=== PATIENT | female | born 1970 | race American Indian/Alaskan Native ===

== ENCOUNTER 2017-12-09 17:28 | Inpatient (IN) | payer OTHER ==
[2017-12-09 18:08] LABS: Basophils % (Auto) 0.3 % (0.0-1.8); Eosinophils % (Auto) 0.4 % (0.0-4.3); Hematocrit 32.1 % (30.3-42.9); Hemoglobin 10.5 gm/dl (10.1-14.3); Lymphocytes # (Auto) 0.9 K/mm3 (1.2-5.4); Lymphocytes % (Auto) 10.7 % (13.4-35.0); Mean Corpuscular HGB Conc 33 % (30-34); Monocytes # (Auto) 0.2 K/mm3 (0.0-0.8); Monocytes % (Auto) 2.6 % (0.0-7.3); Platelet Count 555 K/mm3 (140-440); Red Blood Count 4.94 M/mm3 (3.65-5.03); Red Cell Distribution Width 17.7 % (13.2-15.2)
[2017-12-09 18:11] LABS: Mean Corpuscular Hemoglobin 21 pg (28-32); Mean Corpuscular Volume 65 fl (79-97)
[2017-12-09 18:17] LABS: Albumin 3.8 g/dL (3.9-5); BUN/Creatinine Ratio 17; Blood Urea Nitrogen 12 mg/dL (7-17); Calcium 9.2 mg/dL (8.4-10.2); Hemolysis Index 0; Lipase 41 units/L (13-60)
[2017-12-09 18:18] LABS: Alanine Aminotransferase < 5 units/L (7-56)
[2017-12-09] MEDS ORDERED: ZOFRAN ODT ONE (19:42)
[2017-12-09] MEDS ORDERED: ZOFRAN ODT PO ONE (19:42)
[2017-12-09] MEDS ORDERED: PEPCID IV ONE (20:54)
[2017-12-09] MEDS ORDERED: NACL 0.9% 1000 ML 1,000 ML IV ONE (20:54)
[2017-12-09] MEDS ORDERED: ALUM-MAG HYDROX-SIMETH 200-200-20MG/5ML PO ONE (20:55)
[2017-12-09] MEDS ORDERED: ZOFRAN IV ONE (20:55)
--- NOTE | 2017-12-09 20:56 | Emergency Department Report ---
ED Abdominal Pain HPI - General Chief Complaint: Abdominal Pain Stated Complaint: ABD PAIN/VOMITING Time Seen by Provider: 12/09/17 20:54 Source: patient Mode of arrival: Wheelchair Limitations: No Limitations - History of Present Illness Initial Comments: 47-year-old female past medical history asthma, hypothyroid presents with complaint of over 24 hours nausea vomiting and epigastric pain patient states she has some subjective chills. Awake alert and oriented 3. States she is actively nauseous. Denies any vaginal bleeding hematuria or increased urinary frequency. Accompanied by at bedside. Pointing to her epigastric region. MD Complaint: abdominal pain Onset/Timin -: days(s) Location: periumbilical Radiation: epigastric Migration to: periumbilical Severity: moderate Quality: aching Consistency: constant Improves With: nothing Associated Symptoms: chills - Related Data Allergies Allergy/AdvReac Type Severity Reaction Status Date / Time No Known Allergies Allergy Unverified 12/09/17 17:32 ED Review of Systems ROS: Stated complaint: ABD PAIN/VOMITING Other details as noted in HPI Constitutional: denies: chills, fever Eyes: denies: eye pain, eye discharge, vision change ENT: denies: ear pain, throat pain Respiratory: denies: cough, shortness of breath, wheezing Cardiovascular: denies: chest pain, palpitations Endocrine: no symptoms reported Gastrointestinal: abdominal pain, nausea, vomiting. denies: diarrhea Genitourinary: denies: urgency, dysuria, discharge Musculoskeletal: denies: back pain, joint swelling, arthralgia Skin: denies: rash, lesions Neurological: denies: headache, weakness, paresthesias Psychiatric: denies: anxiety, depression Hematological/Lymphatic: denies: easy bleeding, easy bruising ED Past Medical Hx - Past Medical History Hx Asthma: Yes Additional medical history: thyroid problem - Surgical History Additional Surgical History: C/S - Social History Smoking Status: Never Smoker Substance Use Type: None ED Physical Exam - General Limitations: No Limitations General appearance: alert, in no apparent distress - Head Head exam: Present: atraumatic, normocephalic - Eye Eye exam: Present: normal appearance - ENT ENT exam: Present: mucous membranes moist - Neck Neck exam: Present: normal inspection - Respiratory Respiratory exam: Present: normal lung sounds bilaterally. Absent: respiratory distress - Cardiovascular Cardiovascular Exam: Present: regular rate, normal rhythm. Absent: systolic murmur, diastolic murmur, rubs, gallop - GI/Abdominal GI/Abdominal exam: Present: tenderness (+ LLq pain on deep palpation), normal bowel sounds - Extremities Exam Extremities exam: Present: normal inspection - Back Exam Back exam: Present: normal inspection - Neurological Exam Neurological exam: Present: alert, oriented X3 - Psychiatric Psychiatric exam: Present: normal affect, normal mood - Skin Skin exam: Present: warm, dry, intact, normal color. Absent: rash ED Course Vital Signs 12/09/17 17:32 Temperature 98.7 F Pulse Rate 87 Respiratory 18 Rate Blood Pressure 132/90 O2 Sat by Pulse 99 Oximetry ED Medical Decision Making - Lab Data Result diagrams: 12/09/17 17:56 12/09/17 17:56 - Medical Decision Making A/P: Abdominal pain, acute colitis 1-labs reviewed, unremarkable 2-CT shows colitis 3-Zofran when necessary, Pepcid when necessary 4- case/ d/w hospitalist for admission Critical care attestation.: If time is entered above; I have spent that time in minutes in the direct care of this critically ill patient, excluding procedure time. ED Disposition Clinical Impression: Colitis Abdominal pain Qualifiers: Abdominal location: left lower quadrant Qualified Code(s): R10.32 - Left lower quadrant pain Disposition: -09 OP ADMIT IP TO THIS HOSP Is pt being admited?: Yes Does the pt Need Aspirin: No Condition: Stable Instructions: Abdominal Pain (ED) Referrals: PRIMARY CARE, [Primary Care Provider] - 3-5 Days
[2017-12-09] MEDS ORDERED: LIDOCAINE VISCOUS 2% MM NR (21:00)
[2017-12-09] MEDS ORDERED: LIDOCAINE VISCOUS 2% MM ONE (21:22)
[2017-12-09 21:24] LABS: Bacteria,Urine 1+ /HPF (Negative); Bilirubin,Urine NEG (Negative); Blood,Urine SM (Negative); Color,Urine Yellow (Yellow); Mucus,Urine 2+ /HPF
--- NOTE | 2017-12-10 00:21 | Cat Scan Report ---
FINAL REPORT PROCEDURE: CT ABDOMEN PELVIS W CON TECHNIQUE: Computerized axial tomography of the abdomen and pelvis was performed after the IV injection of iodinated nonionic contrast. HISTORY: left sided abd pain COMPARISON: No prior studies are available for comparison. FINDINGS: Visualized lower thorax: No significant abnormality. Liver: Liver size is normal. There are a few areas of hypoattenuation identified in the right lobe of the liver the largest measures 4 centimeters. Cysts are suspected.. Spleen: Normal size and attenuation. Gallbladder and biliary system: Normal. Pancreas: Normal. Adrenals: Normal. Kidneys: The kidneys have normal size. No hydronephrosis. No renal stones or masses. GI tract: The stomach is normal. A small hiatal hernia is identified. The small bowel is normal. No obstruction is seen. The cecum and appendix are normal. There is bowel wall thickening involving distal colon, colitis is suspected. Complication.. Lymph nodes and mesentery: Normal. Vasculature: Normal. Bladder: Normal. Reproductive organs: The uterus is slightly enlarged. Fibroid formation in the anterior uterine myometrium is noted.. Peritoneum: There is moderate ascites involving left abdomen and extending into the pelvis.. Musculoskeletal structures: No significant abnormality. Other: None. IMPRESSION: Bowel wall thickening involving the distal colon including the splenic flexure and descending colon. Colitis is suspected this region. No complication. Moderate ascites in the left abdomen extending into the pelvis. Cysts in the liver are noted. Enlarged uterus with fibroid formation in the anterior myometrium.
[2017-12-10] MEDS ORDERED: MORPHINE IV ONE (00:56)
[2017-12-10] MEDS ORDERED: NACL 0.9% 1000 ML 1,000 ML IV ONE (00:56)
[2017-12-10] MEDS ORDERED: LEVAQUIN 500MG/100ML 500 MG/100 ML BAG IV ONE (01:08)
[2017-12-10] MEDS ORDERED: SODIUM CHLORIDE FLUSH SYRINGE 10 ML IV PRN (01:41)
[2017-12-10] MEDS ORDERED: TYLENOL PR PRN (01:41)
[2017-12-10] MEDS ORDERED: APRESOLINE IV PRN ×2 (01:41→03:46)
[2017-12-10] MEDS ORDERED: MORPHINE IV PRN (01:41)
[2017-12-10] MEDS ORDERED: ZOFRAN IV PRN (01:41)
--- NOTE | 2017-12-10 01:48 | History and Physical Report ---
History of Present Illness Date of examination: 12/10/17 History of present illness: 47-year-old woman with history of hypertension, comes to the ER for abdominal pain, mid abdomen that started day night. pain is sharp, every 5 minutes, intensity 7/10, radiating to the back, cannot identify exacerbating factor, better with morphine. She had diarrhea 2x, but now resolved Review of systems Constitutional: no weight loss, chills Ears, eyes, nose, mouth and throat: no nasal congestion, no nasal discharge, no sinus pressure, no vision change, no red eye. Neck: No neck pain or rigidity. Cardiovascular: no chest pain, palpitations Respiratory: no cough, shortness of breath Gastrointestinal: no hematochezia Genitourinary : no frequency , no hematuria Musculoskeletal: no joint swelling or muscle ache Integumentary: no rash, no pruritis Neurological: no parathesias, no numbness, no focal weakness Endocrine: no cold or heat intolerance, no polyuria or polydipsia Hematologic/Lymphatic: no easy bruising, no easy bleeding, no gland swelling Allergic/Immunologic: no urticaria, no angioedema. PAST MEDICAL HISTORY: hypertension,asthma PAST SURGICAL HISTORY: c/section SOCIAL HISTORY: No alcohol, no tobacco, no drugs FAMILY HISTORY: Hypertension Medications and Allergies Allergies Allergy/AdvReac Type Severity Reaction Status Date / Time No Known Allergies Allergy Unverified 12/09/17 17:32 Active Meds: Active Medications Acetaminophen (Tylenol) 650 mg PO Q4H PRN PRN Reason: Pain MILD(1-3)/Fever >100.5/PLEITEZ Acetaminophen (Tylenol) 650 mg LA Q4H PRN PRN Reason: Pain MILD(1-3)/Fever >100.5/PLEITEZ Enoxaparin Sodium (Lovenox) 30 mg SUB-Q QDAY KIMBERLY Hydralazine HCl (Apresoline) 5 mg IV Q6H PRN PRN Reason: Hypertension Sodium Chloride (Nacl 0.9% 1000 Ml) 1,000 mls @ 999 mls/hr IV BOLUS ONE Stop: 12/10/17 01:56 Metronidazole (Flagyl 500 Mg/100 Ml) 500 mg in 100 mls @ 200 mls/hr IV ONCE KIMBERLY Stop: 12/10/17 02:29 Levofloxacin/Dextrose (Levaquin 500mg/100ml) 500 mg in 100 mls @ 100 mls/hr IV ONCE ONE Stop: 12/10/17 02:07 Sodium Chloride (Nacl 0.45% 1000 Ml) 1,000 mls @ 100 mls/hr IV DIRECT KIMBERLY Levofloxacin/Dextrose (Levaquin 750mg/150ml) 750 mg in 150 mls @ 100 mls/hr IV Q24HR KIMBERLY; Protocol Metronidazole (Flagyl 500 Mg/100 Ml) 500 mg in 100 mls @ 100 mls/hr IV Q8HR KIMBERLY Morphine Sulfate (Morphine) 2 mg IV Q4H PRN PRN Reason: Pain, Moderate (4-6) Ondansetron HCl (Zofran) 4 mg IV Q4H PRN PRN Reason: Nausea And Vomiting Sodium Chloride (Sodium Chloride Flush Syringe 10 Ml) 10 ml IV BID KIMBERLY Sodium Chloride (Sodium Chloride Flush Syringe 10 Ml) 10 ml IV PRN PRN PRN Reason: LINE FLUSH Exam - Physical Exam Narrative exam: Gen. appearance: Patient lying in bed, no apparent distress HEENT: Normocephalic, atraumatic, pupils equally round and reactive to light, extraocular movement intact, and no sclericterus,. No JVD or thyromegaly or nodule,neck supple, no carotid bruit ,mucous membranes moist, no exudate or erythema Heart: S1, S2, regular rate and rhythm Lungs: Clear bilaterally, breathing comfortable Abdomen: Positive bowel sounds, tender in mid abdomen, LLQ , nondistended, no organomegaly Extremity: No LE edema, no cyanosis, clubbing Skin: No rash, nodules, warm, dry Neuro: Oriented 3, cranial nerves II-12 intact, speech is fluent, sensory intact - Constitutional Vitals: Temp Pulse Resp BP Pulse Ox 98.7 F 87 18 132/90 99 12/09/17 17:32 12/09/17 17:32 12/09/17 17:32 12/09/17 17:32 12/09/17 17:32 Results - Labs CBC & Chem 7: 12/09/17 17:56 12/09/17 17:56 Labs: Abnormal lab results 12/09/17 12/09/17 Range/Units 17:56 17:56 MCV 65 L (79-97) fl MCH 21 L (28-32) pg RDW 17.7 H (13.2-15.2) % Plt Count 555 H (140-440) K/mm3 Lymph % (Auto) 10.7 L (13.4-35.0) % Lymph # 0.9 L (1.2-5.4) K/mm3 Seg Neutrophils % 86.0 H (40.0-70.0) % Sodium 136 L (137-145) mmol/L Chloride 97.4 L (98-107) mmol/L Glucose 107 H (65-100) mg/dL ALT < 5 L (7-56) units/L Albumin 3.8 L (3.9-5) g/dL - Imaging and Cardiology Chest x-ray: report reviewed CT scan - abdomen: report reviewed CT scan - pelvis: report reviewed Assessment and Plan Assessment Acute colitis Hypertension Plan Admit to medicine Start IV levaquin, flagyl, morphine Consult GI, bowel rest, DVT prophalaxis IV hydralazine as needed
[2017-12-10] MEDS ORDERED: FLAGYL 500 MG/100 ML 500 MG/100 ML BAG IV SCH (02:00)
[2017-12-10] MEDS ORDERED: FLAGYL 500 MG/100 ML 500 MG/100 ML BAG IV ONE (02:23)
[2017-12-10] MEDS: NACL 0.45% 1000 ML 1,000 ML IV SCH ×2 (03:42→22:19)
[2017-12-10 08:17] LABS: Basophils % (Auto) 0.4 % (0.0-1.8); Eosinophils % (Auto) 0.2 % (0.0-4.3); Hematocrit 25.8 % (30.3-42.9); Hemoglobin 8.5 gm/dl (10.1-14.3); Lymphocytes # (Auto) 2.2 K/mm3 (1.2-5.4); Lymphocytes % (Auto) 22.3 % (13.4-35.0); Mean Corpuscular HGB Conc 33 % (30-34); Monocytes # (Auto) 0.8 K/mm3 (0.0-0.8); Monocytes % (Auto) 7.9 % (0.0-7.3); Platelet Count 458 K/mm3 (140-440); Red Blood Count 3.89 M/mm3 (3.65-5.03); Red Cell Distribution Width 18.4 % (13.2-15.2)
[2017-12-10 08:18] LABS: Mean Corpuscular Hemoglobin 22 pg (28-32); Mean Corpuscular Volume 66 fl (79-97)
[2017-12-10 08:44] LABS: BUN/Creatinine Ratio 13; Blood Urea Nitrogen 9 mg/dL (7-17); Hemolysis Index 3
[2017-12-10] MEDS: FLAGYL 500 MG/100 ML 500 MG/100 ML BAG IV SCH ×2 (09:59→18:40)
[2017-12-10] MEDS ORDERED: LOVENOX SUB-Q SCH ×2 (10:00)
[2017-12-10] MEDS: SODIUM CHLORIDE FLUSH SYRINGE 10 ML IV SCH ×2 (10:00→22:18)
[2017-12-10] MEDS: DILAUDID IV PRN ×2 (10:09→22:19)
[2017-12-10 11:36] LABS: Hematocrit 25.2 % (30.3-42.9); Hemoglobin 8.1 gm/dl (10.1-14.3)
--- NOTE | 2017-12-10 13:05 | Progress Note ---
Assessment and Plan Assessment and plan: Ms. Tucker is 47 yo woman with a history of hypertension who pw abd pains, diarrhea and found to have the following: * CT abd/pelvis with IV contrast reported bowel wall thickening involving distal colon including splenic flexure and descending colon, colitis is suspected, moderate ascities in the left abdomen extending into the pelvis, cysts in the liver, enlarged uterus with fibroid in the anterior myometrium -Colitis: await GI evaluation -Hypertension: low salt diet -Drop in HCT/Hgb, no signs of bleeding: hold sq lovenox, repeat h/h in am. History Interval history: Patient was seen and examined. Follow-up on current diagnosis. Overnight uneventful. Patient denies any chest pain, shortness breath, nausea/vomiting or severe headaches. Imaging, nursing note, chart, labs and old chart reviewed. Discussed with patient. Hospitalist Physical - Physical exam Narrative exam: GEN: WDWN, NAD, Awake, Alert, Orientated HEENT: NCAT, EOMI, PERRL, OP Clear NECK: supple, no adenopathy, no thyromegaly, no JVD CVS/HEART: RRR, normal S1S2, pulses present bilaterally CHEST/LUNGS: CTA B, Symmetrical chest expansion, good air entry bilaterally GI/Abdomen: soft, NTND, good bowel sounds, no guarding or rebound /Bladder: no suprapubic tenderness, no CVA or paraspinal tenderness EXT/Skin: no c/c/e, no obvious rash MSK: FROM x 4 Neuro: CN 2-12 grossly intact, no new focal deficits Psych: calm - Constitutional Vitals: Temp Pulse Resp BP Pulse Ox 98.6 F 80 16 107/59 97 12/10/17 07:16 12/10/17 07:16 12/10/17 07:16 12/10/17 07:16 12/10/17 07:16 Results - Labs CBC & Chem 7: 12/10/17 10:47 12/10/17 08:01 Labs: Laboratory Last Values WBC 9.9 K/mm3 (4.5-11.0) 12/10/17 08:01 RBC 3.89 M/mm3 (3.65-5.03) 12/10/17 08:01 Hgb 8.1 gm/dl (10.1-14.3) L 12/10/17 10:47 Hct 25.2 % (30.3-42.9) L 12/10/17 10:47 MCV 66 fl (79-97) L 12/10/17 08:01 MCH 22 pg (28-32) L 12/10/17 08:01 MCHC 33 % (30-34) 12/10/17 08:01 RDW 18.4 % (13.2-15.2) H 12/10/17 08:01 Plt Count 458 K/mm3 (140-440) H 12/10/17 08:01 Lymph % (Auto) 22.3 % (13.4-35.0) 12/10/17 08:01 [place] % (Auto) 7.9 % (0.0-7.3) H 12/10/17 08:01 Eos % (Auto) 0.2 % (0.0-4.3) 12/10/17 08:01 Baso % (Auto) 0.4 % (0.0-1.8) 12/10/17 08:01 Lymph # 2.2 K/mm3 (1.2-5.4) 12/10/17 08:01 [place] # 0.8 K/mm3 (0.0-0.8) 12/10/17 08:01 Eos # 0.0 K/mm3 (0.0-0.4) 12/10/17 08:01 Baso # 0.0 K/mm3 (0.0-0.1) 12/10/17 08:01 Seg Neutrophils % 69.2 % (40.0-70.0) 12/10/17 08:01 Seg Neutrophils # 6.8 K/mm3 (1.8-7.7) 12/10/17 08:01 Sodium 141 mmol/L (137-145) 12/10/17 08:01 Potassium 3.8 mmol/L (3.6-5.0) 12/10/17 08:01 Chloride 105.0 mmol/L (98-107) 12/10/17 08:01 Carbon Dioxide 24 mmol/L (22-30) 12/10/17 08:01 Anion Gap 16 mmol/L 12/10/17 08:01 BUN 9 mg/dL (7-17) 12/10/17 08:01 Creatinine 0.7 mg/dL (0.7-1.2) 12/10/17 08:01 Estimated GFR > 60 ml/min 12/10/17 08:01 BUN/Creatinine Ratio 13 % 12/10/17 08:01 Glucose 94 mg/dL (65-100) 12/10/17 08:01 Lactic Acid 1.30 mmol/L (0.7-2.0) 12/10/17 01:51 Calcium 8.0 mg/dL (8.4-10.2) L 12/10/17 08:01 Total Bilirubin 1.10 mg/dL (0.1-1.2) 12/09/17 17:56 AST 15 units/L (5-40) 12/09/17 17:56 ALT < 5 units/L (7-56) L 12/09/17 17:56 Alkaline Phosphatase 50 units/L (35-129) 12/09/17 17:56 Total Protein 8.0 g/dL (6.3-8.2) 12/09/17 17:56 Albumin 3.8 g/dL (3.9-5) L 12/09/17 17:56 Albumin/Globulin Ratio 0.9 % 12/09/17 17:56 Lipase 41 units/L (13-60) 12/09/17 17:56 HCG, Qual Negative (Negative) 12/09/17 17:56 Urine Color Yellow (Yellow) 12/09/17 20:43 Urine Turbidity Clear (Clear) 12/09/17 20:43 Urine pH 7.0 (5.0-7.0) 12/09/17 20:43 Ur Specific [place] 1.025 (1.003-1.030) 12/09/17 20:43 Urine Protein 30 mg/dl mg/dL (Negative) 12/09/17 20:43 Urine Glucose (UA) Neg mg/dL (Negative) 12/09/17 20:43 Urine Ketones 80 mg/dL (Negative) 12/09/17 20:43 Urine Blood Sm (Negative) 12/09/17 20:43 Urine Nitrite Neg (Negative) 12/09/17 20:43 Urine Bilirubin Neg (Negative) 12/09/17 20:43 Urine Urobilinogen 4.0 mg/dL (<2.0) 12/09/17 20:43 Ur Leukocyte Esterase Neg (Negative) 12/09/17 20:43 Urine WBC (Auto) 1.0 /HPF (0.0-6.0) 12/09/17 20:43 Urine RBC (Auto) 6.0 /HPF (0.0-6.0) 12/09/17 20:43 U Epithel Cells (Auto) 6.0 /HPF (0-13.0) 12/09/17 20:43 Urine Bacteria (Auto) 1+ /HPF (Negative) 12/09/17 20:43 Urine Mucus 2+ /HPF 12/09/17 20:43
--- NOTE | 2017-12-10 14:13 | Gastroenterology Consultation ---
<DENNIS SMITH - Last Filed: 12/10/17 14:29> History of Present Illness - Reason for Consult Consult date: 12/10/17 colitis Requesting physician: MANINDER WEIR - History of Present Illness Patient is a 47 y/o female with PMH of asthma and HTN who presented to ED with c /o an acute onset of epigastric pain with associated chills, N/V, and diarrhea x [address] showed colitis to which GI has been consulted. This afternoon patient was resting in bed w/o acute distress. She reports symptoms developed after eating ham on Sunday afternoon. States she is feeling better now with no diarrhea since admission and with epigastric pain and N/V now improved. Tolerating liquids. Denies wt loss, CP, SOB, signs of bleeding, or constipation. No recent abx therapy, travel, or ill contacts. No hx of Fhx of IBD. Past History Past Medical History: hypertension, other (asthma) Past Surgical History: Social history: denies: smoking, alcohol abuse Family history: hypertension Medications and Allergies Allergies Allergy/AdvReac Type Severity Reaction Status Date / Time No Known Allergies Allergy Unverified 12/09/17 17:32 Active Meds: Active Medications Acetaminophen (Tylenol) 650 mg PO Q4H PRN PRN Reason: Pain MILD(1-3)/Fever >100.5/PLEITEZ Acetaminophen (Tylenol) 650 mg [place] Q4H PRN PRN Reason: Pain MILD(1-3)/Fever >100.5/PLEITEZ Hydralazine HCl (Apresoline) 5 mg IV Q6HR PRN PRN Reason: Hypertension Hydromorphone HCl (Dilaudid) 1 mg IV Q6H PRN PRN Reason: Pain , Severe (7-10) Last Admin: 12/10/17 10:09 Dose: 1 mg Sodium Chloride (Nacl 0.45% 1000 Ml) 1,000 mls @ 100 mls/hr IV DIRECT KIMBERLY Last Admin: 12/10/17 03:42 Dose: 100 mls/hr Levofloxacin/Dextrose (Levaquin 750mg/150ml) 750 mg in 150 mls @ 100 mls/hr IV Q24H KIMBERLY; Protocol Metronidazole (Flagyl 500 Mg/100 Ml) 500 mg in 100 mls @ 100 mls/hr IV Q8H KIMBERLY Last Admin: 12/10/17 09:59 Dose: 100 mls/hr Ondansetron HCl (Zofran) 4 mg IV Q4H PRN PRN Reason: Nausea And Vomiting Sodium Chloride (Sodium Chloride Flush Syringe 10 Ml) 10 ml IV BID [facility] Last Admin: 12/10/17 10:00 Dose: 10 ml Sodium Chloride (Sodium Chloride Flush Syringe 10 Ml) 10 ml IV PRN PRN PRN Reason: LINE FLUSH Review of Systems - Review of Systems All systems: negative Gastrointestinal: abdominal pain, nausea, vomiting, diarrhea Exam - Constitutional Vital Signs: Temp Pulse Resp BP Pulse Ox 98.6 F 80 16 107/59 97 12/10/17 07:16 12/10/17 07:16 12/10/17 07:16 12/10/17 07:16 12/10/17 07:16 General appearance: no acute distress - EENT Eyes: PERRL, EOM intact ENT: hearing intact - Respiratory Respiratory: bilateral: CTA - Cardiovascular Rhythm: regular Heart Sounds: Present: S1 & S2 - Gastrointestinal General gastrointestinal: Present: soft, non-tender, non-distended, normal bowel sounds - Neurologic Neurological: alert and oriented x3 - Labs CBC & Chem 7: 12/10/17 10:47 12/10/17 08:01 Lab Results: Laboratory Results - last 24 hr 12/09/17 12/09/17 12/09/17 17:56 17:56 17:56 WBC 8.8 RBC 4.94 Hgb 10.5 Hct 32.1 MCV 65 L MCH 21 L MCHC 33 RDW 17.7 H Plt Count 555 H Lymph % (Auto) 10.7 L Leslie % (Auto) 2.6 Eos % (Auto) 0.4 Baso % (Auto) 0.3 Lymph # 0.9 L Leslie # 0.2 Eos # 0.0 Baso # 0.0 Seg Neutrophils % 86.0 H Seg Neutrophils # 7.6 Sodium 136 L Potassium 3.7 Chloride 97.4 L Carbon Dioxide 22 Anion Gap 20 BUN 12 Creatinine 0.7 Estimated GFR > 60 BUN/Creatinine Ratio 17 Glucose 107 H Lactic Acid Calcium 9.2 Total Bilirubin 1.10 AST 15 ALT < 5 L Alkaline Phosphatase 50 Total Protein 8.0 Albumin 3.8 L Albumin/Globulin Ratio 0.9 Lipase 41 HCG, Qual Negative Urine Color Urine Turbidity Urine pH Ur Specific Ira Urine Protein Urine Glucose (UA) Urine Ketones Urine Blood Urine Nitrite Urine Bilirubin Urine Urobilinogen Ur Leukocyte Esterase Urine WBC (Auto) Urine RBC (Auto) U Epithel Cells (Auto) Urine Bacteria (Auto) Urine Mucus 12/09/17 12/10/17 12/10/17 20:43 01:51 08:01 WBC 9.9 RBC 3.89 Hgb 8.5 L Hct 25.8 L D MCV 66 L MCH 22 L MCHC 33 RDW 18.4 H Plt Count 458 H Lymph % (Auto) 22.3 Leslie % (Auto) 7.9 H Eos % (Auto) 0.2 Baso % (Auto) 0.4 Lymph # 2.2 Leslie # 0.8 Eos # 0.0 Baso # 0.0 Seg Neutrophils % 69.2 Seg Neutrophils # 6.8 Sodium Potassium Chloride Carbon Dioxide Anion Gap BUN Creatinine Estimated GFR BUN/Creatinine Ratio Glucose Lactic Acid 1.30 Calcium Total Bilirubin AST ALT Alkaline Phosphatase Total Protein Albumin Albumin/Globulin Ratio Lipase HCG, Qual Urine Color Yellow Urine Turbidity Clear Urine pH 7.0 Ur Specific Ira 1.025 Urine Protein 30 mg/dl Urine Glucose (UA) Neg Urine Ketones 80 Urine Blood Sm Urine Nitrite Neg Urine Bilirubin Neg Urine Urobilinogen 4.0 Ur Leukocyte Esterase Neg Urine WBC (Auto) 1.0 Urine RBC (Auto) 6.0 U Epithel Cells (Auto) 6.0 Urine Bacteria (Auto) 1+ Urine Mucus 2+ 12/10/17 12/10/17 08:01 10:47 WBC RBC Hgb 8.1 L Hct 25.2 L MCV MCH MCHC RDW Plt Count Lymph % (Auto) Leslie % (Auto) Eos % (Auto) Baso % (Auto) Lymph # Leslie # Eos # Baso # Seg Neutrophils % Seg Neutrophils # Sodium 141 Potassium 3.8 Chloride 105.0 Carbon Dioxide 24 Anion Gap 16 BUN 9 Creatinine 0.7 Estimated GFR > 60 BUN/Creatinine Ratio 13 Glucose 94 Lactic Acid Calcium 8.0 L Total Bilirubin AST ALT Alkaline Phosphatase Total Protein Albumin Albumin/Globulin Ratio Lipase HCG, Qual Urine Color Urine Turbidity Urine pH Ur Specific Ira Urine Protein Urine Glucose (UA) Urine Ketones Urine Blood Urine Nitrite Urine Bilirubin Urine Urobilinogen Ur Leukocyte Esterase Urine WBC (Auto) Urine RBC (Auto) U Epithel Cells (Auto) Urine Bacteria (Auto) Urine Mucus Assessment and Plan 1.colitis -WBC-WNL -afebrile -abd CT showed colitis -etiology- most likely infectious vs inflammatory -clinically, patient reports feeling better with epigastric pain and N/V improved and no diarrhea. -tolerating liquids- will advance to GI soft -continue levaquin and flagyl -stool studies if diarrhea reoccurs -continue supportive care -will follow <PHUONG MOON - Last Filed: 12/10/17 16:11> History of Present Illness - History of Present Illness Works [employer] for [employer]. Has BMs usu 1x/month. No hx of GI bleed. She has a long-standing hx of iron def anemia. She has heavy menses, and a known fibroid. Her mother has some type of blood disorder. Medications and Allergies Active Meds: Active Medications Acetaminophen (Tylenol) 650 mg PO Q4H PRN PRN Reason: Pain MILD(1-3)/Fever >100.5/PLEITEZ Acetaminophen (Tylenol) 650 mg [place] Q4H PRN PRN Reason: Pain MILD(1-3)/Fever >100.5/PLEITEZ Hydralazine HCl (Apresoline) 5 mg IV Q6HR PRN PRN Reason: Hypertension Hydromorphone HCl (Dilaudid) 1 mg IV Q6H PRN PRN Reason: Pain , Severe (7-10) Last Admin: 12/10/17 10:09 Dose: 1 mg Sodium Chloride (Nacl 0.45% 1000 Ml) 1,000 mls @ 100 mls/hr IV DIRECT KIMBERLY Last Admin: 12/10/17 03:42 Dose: 100 mls/hr Levofloxacin/Dextrose (Levaquin 750mg/150ml) 750 mg in 150 mls @ 100 mls/hr IV Q24H KIMBERLY; Protocol Metronidazole (Flagyl 500 Mg/100 Ml) 500 mg in 100 mls @ 100 mls/hr IV Q8H KIMBERLY Last Admin: 12/10/17 09:59 Dose: 100 mls/hr Ondansetron HCl (Zofran) 4 mg IV Q4H PRN PRN Reason: Nausea And Vomiting Sodium Chloride (Sodium Chloride Flush Syringe 10 Ml) 10 ml IV BID KIMBERLY Last Admin: 12/10/17 10:00 Dose: 10 ml Sodium Chloride (Sodium Chloride Flush Syringe 10 Ml) 10 ml IV PRN PRN PRN Reason: LINE FLUSH Exam - Constitutional Vital Signs: Temp Pulse Resp BP Pulse Ox 98.6 F 80 16 107/59 97 12/10/17 07:16 12/10/17 07:16 12/10/17 07:16 12/10/17 07:16 12/10/17 07:16 - Labs CBC & Chem 7: 12/10/17 10:47 12/10/17 08:01 Lab Results: Laboratory Results - last 24 hr 12/09/17 12/09/17 12/09/17 17:56 17:56 17:56 WBC 8.8 RBC 4.94 Hgb 10.5 Hct 32.1 MCV 65 L MCH 21 L MCHC 33 RDW 17.7 H Plt Count 555 H Lymph % (Auto) 10.7 L Leslie % (Auto) 2.6 Eos % (Auto) 0.4 Baso % (Auto) 0.3 Lymph # 0.9 L Leslie # 0.2 Eos # 0.0 Baso # 0.0 Seg Neutrophils % 86.0 H Seg Neutrophils # 7.6 Sodium 136 L Potassium 3.7 Chloride 97.4 L Carbon Dioxide 22 Anion Gap 20 BUN 12 Creatinine 0.7 Estimated GFR > 60 BUN/Creatinine Ratio 17 Glucose 107 H Lactic Acid Calcium 9.2 Total Bilirubin 1.10 AST 15 ALT < 5 L Alkaline Phosphatase 50 Total Protein 8.0 Albumin 3.8 L Albumin/Globulin Ratio 0.9 Lipase 41 HCG, Qual Negative Urine Color Urine Turbidity Urine pH Ur Specific Ira Urine Protein Urine Glucose (UA) Urine Ketones Urine Blood Urine Nitrite Urine Bilirubin Urine Urobilinogen Ur Leukocyte Esterase Urine WBC (Auto) Urine RBC (Auto) U Epithel Cells (Auto) Urine Bacteria (Auto) Urine Mucus 12/09/17 12/10/17 12/10/17 20:43 01:51 08:01 WBC 9.9 RBC 3.89 Hgb 8.5 L Hct 25.8 L D MCV 66 L MCH 22 L MCHC 33 RDW 18.4 H Plt Count 458 H Lymph % (Auto) 22.3 Leslie % (Auto) 7.9 H Eos % (Auto) 0.2 Baso % (Auto) 0.4 Lymph # 2.2 Leslie # 0.8 Eos # 0.0 Baso # 0.0 Seg Neutrophils % 69.2 Seg Neutrophils # 6.8 Sodium Potassium Chloride Carbon Dioxide Anion Gap BUN Creatinine Estimated GFR BUN/Creatinine Ratio Glucose Lactic Acid 1.30 Calcium Total Bilirubin AST ALT Alkaline Phosphatase Total Protein Albumin Albumin/Globulin Ratio Lipase HCG, Qual Urine Color Yellow Urine Turbidity Clear Urine pH 7.0 Ur Specific Ira 1.025 Urine Protein 30 mg/dl Urine Glucose (UA) Neg Urine Ketones 80 Urine Blood Sm Urine Nitrite Neg Urine Bilirubin Neg Urine Urobilinogen 4.0 Ur Leukocyte Esterase Neg Urine WBC (Auto) 1.0 Urine RBC (Auto) 6.0 U Epithel Cells (Auto) 6.0 Urine Bacteria (Auto) 1+ Urine Mucus 2+ 12/10/17 12/10/17 08:01 10:47 WBC RBC Hgb 8.1 L Hct 25.2 L MCV MCH MCHC RDW Plt Count Lymph % (Auto) Leslie % (Auto) Eos % (Auto) Baso % (Auto) Lymph # Leslie # Eos # Baso # Seg Neutrophils % Seg Neutrophils # Sodium 141 Potassium 3.8 Chloride 105.0 Carbon Dioxide 24 Anion Gap 16 BUN 9 Creatinine 0.7 Estimated GFR > 60 BUN/Creatinine Ratio 13 Glucose 94 Lactic Acid Calcium 8.0 L Total Bilirubin AST ALT Alkaline Phosphatase Total Protein Albumin Albumin/Globulin Ratio Lipase HCG, Qual Urine Color Urine Turbidity Urine pH Ur Specific Ira Urine Protein Urine Glucose (UA) Urine Ketones Urine Blood Urine Nitrite Urine Bilirubin Urine Urobilinogen Ur Leukocyte Esterase Urine WBC (Auto) Urine RBC (Auto) U Epithel Cells (Auto) Urine Bacteria (Auto) Urine Mucus Assessment and Plan 1. Iron def anemia - check iron stores. Likely due to menorrhagia. Given pt' s age, needs colon/EGD, as outpt after resolution of above, with biopsies. Advised to get dx on her mother. 2. IBS-C - try Miralax. May give Trulance or Linzess as outpatient.
[2017-12-10 17:23] LABS: Iron 17 ug/dL (37-170); Total Iron Binding Capacity 402 mcg/dL (250-450)
[2017-12-10] MEDS ORDERED: LEVAQUIN 750MG/150ML 750 MG/150 ML BAG IV SCH (22:00)
[2017-12-11] MEDS: FLAGYL 500 MG/100 ML 500 MG/100 ML BAG IV SCH ×2 (02:55→11:16)
[2017-12-11 07:48] LABS: Hematocrit 25.5 % (30.3-42.9); Hemoglobin 8.2 gm/dl (10.1-14.3); Mean Corpuscular HGB Conc 32 % (30-34); Platelet Count 422 K/mm3 (140-440); Red Cell Distribution Width 18.1 % (13.2-15.2)
[2017-12-11 07:54] LABS: Mean Corpuscular Hemoglobin 22 pg (28-32); Mean Corpuscular Volume 67 fl (79-97)
[2017-12-11] MEDS: TYLENOL PO PRN ×2 (09:32→16:00)
[2017-12-11] MEDS: SODIUM CHLORIDE FLUSH SYRINGE 10 ML IV SCH ×2 (09:33→22:22)
[2017-12-11 09:37] LABS: BUN/Creatinine Ratio 9; Blood Urea Nitrogen 7 mg/dL (7-17); Calcium 8.4 mg/dL (8.4-10.2); Hemolysis Index 0
--- NOTE | 2017-12-11 13:41 | Gastroenterology Progress Note ---
Assessment and Plan 1.colitis -WBC-WNL -afebrile -abd CT showed colitis -etiology- most likely infectious vs inflammatory -clinically, patient reports feeling better with epigastric pain improved and N/ V resolved. No diarrhea. -tolerating soft diet -continue levaquin and flagyl-transition to PO -stool studies if diarrhea reoccurs -patient okay to be d/c per GI standpoint on antibiotics x 7 days with follow up clinic appt in 3-4 weeks -office information and card given to patient 2.iron def anemia -H/H stable -no active signs of bleeding -etiology-likely due to menorrhagia, however pt's mother has a hx of a blood disorder- advised pt to get dx -recommend an EGD/colonoscopy as an outpatient for further evalution given pt's age 3.IBS-c -continue Miralax -consider Tulance or lizess as an outpaient -will sign off, please call if needed Subjective Date of service: 12/11/17 Principal diagnosis: colitis Interval history: Patient w/o distress. Abd pain and N/V improved. Tolerating diet. Objective - Constitutional Vitals: Temp Pulse Resp BP Pulse Ox 98.8 F 71 20 122/74 99 12/11/17 07:44 12/11/17 07:44 12/11/17 07:44 12/11/17 07:44 12/11/17 07:44 General appearance: no acute distress - EENT Eyes: PERRL, EOM intact ENT: hearing intact - Respiratory Respiratory: bilateral: CTA - Cardiovascular Rhythm: regular Heart Sounds: Present: S1 & S2 - Gastrointestinal General gastrointestinal: Present: soft, tender (slight TTP in epigastric area) , non-distended, normal bowel sounds - Neurologic Neurological: alert and oriented x3 - Labs CBC & Chem 7: 12/11/17 06:24 12/11/17 06:24 Labs: Laboratory Results - last 24 hr 12/10/17 12/10/17 12/11/17 16:36 16:36 06:24 WBC 6.5 RBC 3.80 Hgb 8.2 L Hct 25.5 L MCV 67 L MCH 22 L MCHC 32 RDW 18.1 H Plt Count 422 Sodium Potassium Chloride Carbon Dioxide Anion Gap BUN Creatinine Estimated GFR BUN/Creatinine Ratio Glucose Calcium Iron 17 L TIBC 402 Ferritin 9.3 L 12/11/17 06:24 WBC RBC Hgb Hct MCV MCH MCHC RDW Plt Count Sodium 142 Potassium 3.6 Chloride 103.4 Carbon Dioxide 28 Anion Gap 14 BUN 7 Creatinine 0.8 Estimated GFR > 60 BUN/Creatinine Ratio 9 Glucose 89 Calcium 8.4 Iron TIBC Ferritin
--- NOTE | 2017-12-11 13:52 | Progress Note ---
Assessment and Plan Ms. Tucker is 47 yo woman with a history of hypertension who pw abd pains, diarrhea. CT scan of the abdomen showed thickening of the distal colon as well as the descending colon. Moderate ascites noted. -Colitis: On IV Levaquin and Flagyl -Hypertension: Controlled. Advised low salt diet - Anemia: From iron deficiency likely from menorrhagia - Irritable bowel syndrome with constipation MiraLAX Subjective Date of service: 12/11/17 Principal diagnosis: colitis, Interval history: Patient seen and examined still having abdominal pain. Diarrhea 2 today. No blood. loose. Objective - Exam Narrative Exam: Constitutional: Well-nourished well-developed. In no distress Head: Normocephalic atraumatic Eyes: Pupils are equal round and reactive to light Nose: No enlarged turbinates, no septal deviation. Mouth: Moist mucous membranes. Neck: Supple no thyromegaly. No bruit. No JVD Heart: Regular rate and rhythm, S1-S2 abnormal. No rubs murmurs or gallop Lungs: Clear to auscultation bilaterally no rales or rhonchi Abdomen: Soft, nontender. Bowel sound are present. Extremities: No edema no cyanosis and no clubbing. Neuro: Alert oriented Oriented x3. No focal sensory or motor deficit. Skin: No rashes no hyperemic spots Psychiatry: Euthymic. Calm. - Constitutional Vitals: Vital Signs - 12hr 12/11/17 07:44 Temperature 98.8 F Pulse Rate 71 Respiratory 20 Rate Blood Pressure 122/74 O2 Sat by Pulse 99 Oximetry - Labs CBC & Chem 7: 12/11/17 06:24 12/11/17 06:24 Labs: Abnormal lab results 12/10/17 12/10/17 12/11/17 Range/Units 16:36 16:36 06:24 Hgb 8.2 L (10.1-14.3) gm/dl Hct 25.5 L (30.3-42.9) % MCV 67 L (79-97) fl MCH 22 L (28-32) pg RDW 18.1 H (13.2-15.2) % Iron 17 L (37-170) ug/dL Ferritin 9.3 L (13.0-400.0) ng/mL
[2017-12-11] MEDS: FLAGYL PO SCH ×2 (15:51→22:22)
[2017-12-12] MEDS: FLAGYL PO SCH ×2 (06:59→13:40)
[2017-12-12] MEDS: SODIUM CHLORIDE FLUSH SYRINGE 10 ML IV SCH (09:59)
[2017-12-12] MEDS ORDERED: LEVAQUIN PO SCH (10:00)
[2017-12-12] MEDS ORDERED: NACL 0.9% 500 ML 500 ML IV ONE (12:00)
--- NOTE | 2017-12-12 13:11 | Discharge Summary ---
Providers - Providers Date of Admission: 12/10/17 01:41 Date of discharge: 12/12/17 Attending physician: ANDREY STOKES 12/10/17 01:41 Consult to Physician [CONS] Routine Comment: Consulting Provider: LOKESH RAMIREZ Physician Instructions: Reason For Exam: colitis Primary care physician: RESEARCH RECRUITER Hospitalization Condition: Stable Hospital course: Ms. Tucker is 47 yo woman with a history of hypertension who pw abd pains, diarrhea and found to have the following: * CT abd/pelvis with IV contrast reported bowel wall thickening involving distal colon including splenic flexure and descending colon, colitis is suspected, moderate ascities in the left abdomen extending into the pelvis, cysts in the liver, enlarged uterus with fibroid in the anterior myometrium -Colitis, home with abx -Hypertension: low salt diet -Acute on chronic blood loss anemia, with hemorrhage from DUB -Iron deficiency anemia from chronic blood loss -Menorrhagia, hemoglobin 8.1 and she has started menstrual bleeding today, will transfuse 1 unit and give outpatient copy room technician referral Disposition: TO HOME OR SELFCARE Time spent for discharge: 35 minutes Core Measure Documentation - Palliative Care Palliative Care/ Comfort Measures: Not Applicable - Core Measures Any of the following diagnoses?: none - VTE Discharge Requirements Deep Vein Thrombosis/Pulmonary Embolism Present on Admission: No Has pt received <5 days of overlap therapy or INR<2.0: No Anticoagulant overlap therapy prescribed at discharge: No Contraindication No Overlap Therapy order at DC: Not Indicated Exam - Physical Exam Narrative exam: GEN: WDWN, NAD, Awake, Alert, Orientated HEENT: NCAT, EOMI, PERRL, OP Clear NECK: supple, no adenopathy, no thyromegaly, no JVD CVS/HEART: RRR, normal S1S2, pulses present bilaterally CHEST/LUNGS: CTA B, Symmetrical chest expansion, good air entry bilaterally GI/Abdomen: soft, NTND, good bowel sounds, no guarding or rebound /Bladder: no suprapubic tenderness, no CVA or paraspinal tenderness EXT/Skin: no c/c/e, no obvious rash MSK: FROM x 4 Neuro: CN 2-12 grossly intact, no new focal deficits Psych: calm - Constitutional Vitals: Temp Pulse Resp BP Pulse Ox 98.7 F 68 19 136/80 97 12/12/17 07:37 12/12/17 07:37 12/12/17 07:37 12/12/17 07:37 12/12/17 08:42 Plan Activity: other (no strenous activity until cleared by pcp, make first available appointment) Diet: low salt, advance as tolerated Follow up with: PRIMARY CAREMD [Primary Care Provider] - 3-5 Days [facility] [Provider Group] - 7 Days LOKESH RAMIREZ MD [Staff Physician] - 7 Days CJ CHAMBERLAIN MD [Staff Physician] - 7 Days Prescriptions: Acetaminophen [Acetaminophen TAB] 325 mg PO Q4H PRN #30 tablet PRN Reason: Pain MILD(1-3)/Fever >100.5/PLEITEZ Docusate Sodium [Colace] 100 mg PO BID #60 capsule Ferrous Sulfate [Iron] 325 mg PO TID #90 tablet Levofloxacin [Levaquin TAB] 500 mg PO Q24HR #5 tablet metroNIDAZOLE [Flagyl TAB] 500 mg PO Q8HR #18 tablet
[2017-12-12 20:10] VITALS: BP 135/88
== END 2017-12-12 20:13 | disposition home or self-care (01) | DRG 392 ==
LOC: ED 17:28 → 3A 12-10 01:41
PROVIDERS: ADMIT Internal Medicine; ATTEND Internal Medicine
PROC: 30233N1 Transfusion of Nonautologous Red Blood Cells into Peripheral Vein, Percutaneous Approach (ICD-10-PCS; principal; 2017-12-12)
DX: K52.9 Noninfective gastroenteritis and colitis, unspecified (principal); D62 Acute posthemorrhagic anemia; I10 Essential (primary) hypertension; D53.9 Nutritional anemia, unspecified; N92.0 Excessive and frequent menstruation with regular cycle; K59.00 Constipation, unspecified; N93.8 Other specified abnormal uterine and vaginal bleeding; Z82.49 Family history of ischemic heart disease and other diseases of the circulatory system
CPT/HCPCS: 36415; 74177; 80048; 80053; 81001; 82140; 82728; 83550; 83690; 84703; 85014; 85018; 85025; 85027; 86850; 86900; 86901; 86920; J1170; J1956; J2270; J2405; J7030; J7040; P9016; Q0162; Q9967